=== PATIENT | female | born 1955 | race Caucasian/White ===

== ENCOUNTER 2017-12-07 10:53 | Outpatient (CLI) | payer BC ==
[2017-12-07 13:15] LABS: #Eosinphils 0.1 thou/uL (0.0-0.7); #Lymphocytes 2.1 thou/uL (1.20-3.40); #Monocytes 0.4 thou/uL (0.11-0.59); %Basophils 0.2 % (0.0-1.0); %Eosinophils 1.6 % (0.0-10.0); %Lymphocytes 38.1 % (21.0-51.0); %Monocytes 6.5 % (0.0-10.0); %Neutrophils 53.6 % (42.0-75.0); Hemoglobin 14.2 g/dL (12.0-16.0); Mean Corpuscular HGB CONC 33.1 g/dL (32.0-36.0); Mean Corpuscular Hemoglobin 30.4 pg (27.0-31.0); Mean Corpuscular Volume 91.8 fl (81.0-99.0); Mean Platelet Volume 8.6 fL (7.4-10.4); Platelet Count 189 thou/uL (130-400); RBC Distribution Width 12.7 % (11.5-14.5); Red Blood Cell (RBC) Count 4.69 mill/uL (4.20-5.40); White Blood Cell (WBC) Count 5.6 thou/uL (4.8-10.8)
[2017-12-07 13:42] LABS: Anion Gap 13 mmol/L (10-20); BUN (Urea Nitrogen) 12 mg/dL (9.8-20.1); Calc. Creatinine Clearance 0 mL/min (70-130); Calcium 8.9 mg/dL (7.8-10.44); Carbon Dioxide 26 mmol/L (23-31); Chloride 105 mmol/L (98-107); Estimated GFR-MDRD 72; Glucose 99 mg/dL (80-115); Potassium 3.9 mmol/L (3.5-5.1); Sodium 140 mmol/L (136-145)
--- NOTE | 2017-12-20 22:49 | EKG ---
Test Reason : Blood Pressure : / mmHG Vent. Rate : 070 BPM Atrial Rate : 070 BPM P-R Int : 184 ms QRS Dur : 084 ms QT Int : 400 ms P-R-T Axes : 062 045 022 degrees QTc Int : 432 ms Normal sinus rhythm Normal ECG No previous ECGs available Confirmed by Fareed CHOPRA ([id number]) on 12/20/2017 10:49:04 PM Referred By: AILEEN Confirmed By:Fareed CHOPRA
== END 2017-12-07 10:54 | disposition home or self-care (01) ==
LOC: LABBT 10:53
PROVIDERS: ATTEND Orthopaedic Surgery Hand Surgery
DX: Z01.812 Encounter for preprocedural laboratory examination (principal); M20.021 Boutonniere deformity of right finger(s)
CPT/HCPCS: 80048; 85025; 93005; 93010

== ENCOUNTER 2017-12-12 07:38 | Day surgery (SDC) | payer BC ==
[2017-12-07 11:11] VITALS: BMI 48.0
[2017-12-12] MEDS ORDERED: Fentanyl 100 MCG/2 ML VIAL ONE ×3 (08:26→14:31)
[2017-12-12] MEDS ORDERED: Midazolam HCl 2 mg/2 ml Vial ONE (08:26)
[2017-12-12] MEDS ORDERED: Bupivacaine HCl 0.5%/Epinephrine 1:200,000/PF 30 ml Vial ONE (11:17)
[2017-12-12] MEDS ORDERED: PROPOFOL 200 MG/20 ML VIAL ONE (11:35)
[2017-12-12] MEDS ORDERED: Bacitracin Zinc Ointment 30 gm TUBE ONE (11:35)
[2017-12-12] MEDS ORDERED: Bupivacaine PF 0.5% 30 ML VIAL ONE (11:35)
[2017-12-12] MEDS ORDERED: Ondansetron HCl/PF 4 MG/2 ML Vial ONE (11:35)
[2017-12-12] MEDS ORDERED: Sodium Chloride 0.9% 10 ML ONE (11:35)
[2017-12-12] MEDS ORDERED: Lidocaine 1% PF 5 ML VIAL ONE (11:35)
[2017-12-12] MEDS ORDERED: CEFAZOLIN/Water 2 GM/20 ML SYRINGE ONE (11:48)
[2017-12-12 12:15] LABS: Bilirubin Negative (Negative); Blood, Urine Negative (Negative); Clarity CLOUDY (Clear); Glucose, Urine (Dipstick) Negative (Negative); Leukocyte Negative (Negative); Nitrite Negative (Negative); Protein, Urine (Dipstick) Negative (Neg-Trace); Urobilinogen 0.2 mg/dL (0.2-1.0)
[2017-12-12 12:16] LABS: Specific Gravity, Urine 1.023 (1.002-1.036)
[2017-12-12] MEDS ORDERED: Ketorolac Tromethamine 30 MG/ML VIAL ONE (14:43)
--- NOTE | 2017-12-12 15:14 | RAD ---
INTEROPERATIVE FLUOROSCOPY: History: Trigger release. Comparison: None. FINDINGS: Intraoperative fluoroscopy demonstrates surgical hardware projecting over the third digit. IMPRESSION: Surgical hardware and instrumentation projecting over the third digit. POS: [facility]
--- NOTE | 2017-12-13 14:12 | OP ---
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 POSTOPERATIVE DIAGNOSIS: Joint contracture very tight at 40 degrees of flexion, palmar capsule too, stretch of extensor mechanism required approximately 2.5 mm-3 mm resection, but the central slip inse rtion was still intact. COMPLICATIONS: None. TOURNIQUET TIME: First 19 minutes with a 15-minute break, then 23 minutes with a 15-minute break wit h closure at 250 mmHg pressure. ANESTHESIA: General LMA technique augmented by an axillary block prior to surgical procedure. INDICATIONS: The patient is now 3.5 months hyperextension mechanism injury directly actual low to th e affected right middle finger and noticed a progressive inability to extend the joint to the point w here approximately 6 weeks ago she could not extend it beyond -40 degrees. There was no bony injury seen on plain preop radiographs. PROCEDURES: Are, 1. Right joint PIP joint arthrotomy. 2. Right proximal phalangeal joint capsulotomy. 3. Right proximal phalangeal joint pinning. 4. Right middle finger boutonniere repair. 5. C-arm supervision for right middle finger procedure, that is taken one hour by the surgeon. SPECIMEN REMOVED: None. DESCRIPTION OF THE PROCEDURE: After successful general LMA technique, the limb prepped and draped. She also had axillary block, and under general with the block, I could not passively extend the finge r beyond -4 degrees. There was a fixed endpoint, very firm. For this reason, we outlined the volar incision, Marco type carried to skin, subcutaneous tissue, identified neurovascular bundles with sha rp dissection, protecting them and then first from the radial side and then from the ulnar side appro ach, making a small window in the flexor tendon sheath junction of the flexor tendon and bone, freein g the ligament first and then volar plate and finally capsule. First on one side radially and then on the second side palmarly. Once this was all done, we saw the flexor tendon was still intact, we began to close stretching to achieve the last 15-20 degrees and we were able to achieve that. W e could even achieve 10 degrees of hyperextension without much spring back. C-arm confirmed there wa s no fracture, no subluxation, and the radial ulnar release and capsulotomy was complete and the join t arthrotomy was complete. We then extended the finger with the help of a positioner, deflated tourniquet, obtained hemostasis, and closed the palmar wound. There, we reinflated the tourniquet after exsanguination of limb to 250 mmHg pressure and made an incision over the radial side of the joint dorsally, carried through skin a nd subcutaneous tissue was here, we have him a dissected tendon free and see some slip was intact. T here was a pink area of redundant tissue seen with the fingers extended approximately 4 mm proximal t o the insertion here. Here, we made a transverse incision, all the way through the tendon mass and l eft the first portion of this distal on the base of the proximal phalanx. Then, once this was done, we then removed a 2.5 mm area of the extensor mechanism half leaving a 6 mm area of insertion, laid the sutures to close this gap with adjoining 5-degree hyperextension and then passed a K-wire a cross the joint from radial to ulnar, distal to proximal, which was confirmed on C-arm to have excell ent position and purchase in the bone. Tourniquet deflated, hemostasis obtained, 7 sutures used to repair the extensor mechanism with interr upted [id number] Prolene 4-0 on a RB-1 needle. Then, we obtained hemostasis and closed the inci denis with interrupted 4-0 nylon in a simple pattern. Bulky dressing was applied. With his posterior ulnar palmar splint, the patient left the operating room without evidence of anesthetic or operative complication.
== END 2017-12-12 16:12 | disposition home or self-care (01) ==
LOC: SDC 07:38
PROVIDERS: ATTEND Orthopaedic Surgery Hand Surgery
PROC: 0RBW0ZZ Excision of Right Finger Phalangeal Joint, Open Approach (ICD-10-PCS; principal; 2017-12-12)
PROC: 0RQW0ZZ Repair Right Finger Phalangeal Joint, Open Approach (ICD-10-PCS; principal; 2017-12-12)
DX: M20.021 Boutonniere deformity of right finger(s) (principal); S62.622A Displaced fracture of middle phalanx of right middle finger, initial encounter for closed fracture; I10 Essential (primary) hypertension; Z88.0 Allergy status to penicillin; Z88.2 Allergy status to sulfonamides; Z88.8 Allergy status to other drugs, medicaments and biological substances; Z96.651 Presence of right artificial knee joint
CPT/HCPCS: 76000; 81003; 96372; 96374; A4216; J0670; J1885; J2001; J2250; J2405; J2704; J3010; J3490; S0020